=== PATIENT | female | born 1990 | race Caucasian/White ===

== ENCOUNTER 2017-11-24 14:00 | Inpatient (IN) | payer OTHER ==
[~2017-11-24] VITALS: Ht 167.6 cm; Wt 107.0 kg
[2017-11-24] MEDS ORDERED: PRENATAL TABLE1 EAC1 PO (15:21)
== END 2017-11-30 10:19 | disposition home or self-care (01) | DRG 778 ==
LOC: OB/GYN 14:00 → LDR 14:00 → OB/GYN 11-25 08:35
PROC: BY4FZZZ Ultrasonography of Third Trimester, Single Fetus (ICD-10-PCS; principal; 2017-11-24)
PROC: 4A1HXCZ Monitoring of Products of Conception, Cardiac Rate, External Approach (ICD-10-PCS; 2017-11-24)
PROC: BU4CZZZ Ultrasonography of Uterus and Ovaries (ICD-10-PCS; 2017-11-24)
PROC: BY4FZZZ Ultrasonography of Third Trimester, Single Fetus (ICD-10-PCS; 2017-11-26)
PROC: BY4FZZZ Ultrasonography of Third Trimester, Single Fetus (ICD-10-PCS; 2017-11-29)
DX: O60.03 Preterm labor without delivery, third trimester (principal); O26.873 Cervical shortening, third trimester

== ENCOUNTER 2017-12-21 05:20 | Inpatient (IN) | payer OTHER ==
[~2017-12-21] VITALS: Ht 167.6 cm; Wt 108.0 kg
[~2017-12-21 05:20] MED LIST: PRENATAL TABLE1 EAC1 PO
== END 2017-12-23 11:38 | disposition home or self-care (01) | DRG 807 ==
LOC: LDR 05:20 → SURG-SUITE 13:46
PROC: 10E0XZZ Delivery of Products of Conception, External Approach (ICD-10-PCS; principal; 2017-12-21)
PROC: 4A1HXCZ Monitoring of Products of Conception, Cardiac Rate, External Approach (ICD-10-PCS; 2017-12-21)
PROC: 0HQ9XZZ Repair Perineum Skin, External Approach (ICD-10-PCS; 2017-12-21)
DX: O70.0 First degree perineal laceration during delivery (principal); Z37.0 Single live birth; Z3A.39 39 weeks gestation of pregnancy